=== PATIENT | female | born 1975 | race Caucasian/White ===

== ENCOUNTER 2017-07-17 20:12 | Emergency (ER) | payer MEDICARE ==
[~2017-07-17] VITALS: Ht 167.6 cm; Wt 113.6 kg
[~2017-07-17 20:12] MED LIST: ALTACE 10MG TAB10 MG PO; ALTACE 5MG5 MG PO; ALTACE5 MG PO; AMBIEN 10MG10 MG PO; AMBIEN5 MG PO; AMOXICILLIN 50500 MG PO; ATENOLOL25 MG PO; ATIVAN 0.50.5 MG/TAB PO; BENZTROPINE1 MG PO; CATAPRES 0.1MG0.1 MG PO; CEFTIN500 MG PO; CLEOCIN HCL300 MG PO; COGENTIN 1MG1 MG/TAB PO; COLACE 100100 MG/CAP PO; DARVOCET A500 51 TAB PO; DARVOCET-N-101 UDTAB PO; DEPAKOTE ER 50500 MG PO; DEPAKOTE500 MG PO; DESYREL 100MG100 MG PO; DESYREL 50MG50 MG PO; DESYREL DIVIDO300 MG PO; DIAZEPAM PO; DIVALPROEX DR500 MG PO; ESCITALOPRAM; GLUCOMETER; GLUCOPHAGE500 MG/TAB PO; GLUCOSE TEST ST1 DEV MC; HCTZ; HCTZ 25MG25 MG PO; HUMALOG100 U/ML; HUMALOG100 U/ML SQ; HUMULIN R 10100 U/ML SC; HYDROCODONE/APAP PO; HYTRIN 5MG C5 MG/CAP PO; INSLANT SC; INSULIN HUMA100 U/ML SC; KLONOPIN 1MG1 MG PO; KLONOPIN2 MG PO; KLOR-CON 1010 MEQ PO; LANCETS MC; LANTUS100 U/ML SC; LANTUS100 U/ML SQ; LEXAPRO20 MG PO; LIPITOR 10MG10 MG PO; LOPRESSOR 225 MG/TAB PO; LORTAB 7.5/5001 TAB PO; LUNESTA2 MG; LUNESTA2 MG PO; LUNESTA3 MG PO; LYRICA 150MG C150 MG PO; LYRICA 75MG CAP75 MG PO; MACROBID100 MG PO; METFORMIN1000 MG PO; MINIPRESS 1M1 MG/CAP PO; MINIPRESS 5M5 MG/CAP PO; MINIPRESS2 MG PO; MOTRIN 800800 MG/TAB PO; NAPROXEN 3375 MG/TAB PO; NEURONTIN300 MG/CAP PO; NOVOLOG 100U100 U/M1 SC; NOVOLOG FLEX100 U/ML SC; PERCOCET 325 MG1 TA2 PO; PHENERGAN 25 TA25 MG PO; PRAZOSIN HCL2 MG PO; PROZAC40 MG PO; REMERON 15M15 MG/TA1 PO; ROZEREM 8MG TABL8 MG PO; SEROQUEL 1100 MG/TAB PO; SEROQUEL300 MG; SEROQUEL300 MG PO; SEROQUEL400 MG PO; THORAZINE 550 MG/TAB PO; TRAZODO50 MG PO; ULTRAM 50MG TAB50 MG PO; UNABLE; VIIBRYD20 MG PO; ZITHROMAX Z-PA250 M1 PO; ZITHROMAX Z-PA250 MG PO; ZOFRAN ODT4 MG PO; ZOLOFT 25MG25 MG PO; antibiotic; bp medication
[2017-07-17 20:19] VITALS: TEMP 98.9
[2017-07-17 20:38] LABS: BASO # 0.1 (0.0-0.2); BASO % 1.4 % (0.0-2.0); EOS # 0.1 (0.0-0.7); EOS % 1.8 % (0-4.0); GRAN # 2.1 (1.4-6.5); GRAN % 47.7 % (42.2-75.2); HEMATOCRIT 36.5 % (37.0-47.0); HEMOGLOBIN 12.6 g/dl (12.5-16.0); LYMPH # 1.7 (1.2-3.4); LYMPH % 37.8 % (20.0-51.0); MEAN CELL VOLUME 78 fl (80.0-100.0); MEAN CORPUSCULAR HEMOGLOBIN 27 pg (27.0-31.0); MEAN CORPUSCULAR HGB CONC 35 g/dl (33.0-37.0); MEAN PLATELET VOLUME 9.9 fl (7.4-10.4); MONO # 0.5 (0.1-0.6); MONO % 10.8 % (1.7-9.3); PLATELET COUNT 184 K/mm3 (130-400); RED BLOOD COUNT 4.67 M/mm3 (4.10-5.30); REDCELL DISTRIBUTION WIDTH-CV 14.6 % (11.5-14.5)
[2017-07-17 20:42] LABS: ARTERIAL BLD GAS TCO2 CT 21.7; ARTERIAL BLOOD GAS BASE EXCESS -2.6 (-2-2); ARTERIAL BLOOD GAS HCO3 20.7 meq/L (22-26); ARTERIAL BLOOD GAS PCO2 31.5 mmHg (35-45); ARTERIAL BLOOD GAS PO2 95.9 mmHg (80-100); ARTERIAL BLOOD GAS pH 7.44 (7.35-7.45)
[2017-07-17 20:54] LABS: ALBUMIN 3.9 gm/dL (3.5-5.0); BILIRUBIN,TOTAL 0.9 mg/dL (0.0-1.0); CALCIUM 9.1 mg/dL (8.4-10.2); CREATININE, serum 0.66 mg/dL (0.52-1.25); POTASSIUM 3.6 mmol/L (3.4-5.0); TOTAL PROTEIN 8.1 gm/dL (6.4-8.2)
[2017-07-17] MEDS ORDERED: NEURONTIN400 MG/CAP PO (21:00)
[2017-07-17] MEDS ORDERED: SEROQUEL400 MG PO (21:01)
[2017-07-17] MEDS ORDERED: LANTUS100 U/ML SQ (21:02)
[2017-07-17 21:40] LABS: COLLECTION METHOD CLEAN CATCH
[2017-07-17 21:46] LABS: PH 6 (5-8); SQUAMOUS EPITHELIAL 0-2 /hpf; URINE APPEARANCE Clear; URINE BACTERIA None Seen /hpf; URINE BILIRUBIN Negative (NEGATIVE); URINE BLOOD 2+ (NEGATIVE); URINE COLOR Yellow; URINE GLUCOSE 3+ (NEGATIVE); URINE KETONE Negative (NEGATIVE); URINE LEUKOCYTE ESTERASE Trace (NEGATIVE); URINE NITRATE Negative (NEGATIVE); URINE PROTEIN(semi-quant) Negative (NEGATIVE); URINE RBC 0-2 /hpf; URINE UROBILINOGEN Negative (NEGATIVE)
[2017-07-17 22:09] LABS: INR 0.9 (0.8-3.0); PROTHROMBIN TIME 10.4 SECONDS (9.7-12.8)
[2017-07-17 23:49] VITALS: BP 155/95; PULSE 96
== END 2017-07-18 00:05 | disposition home or self-care (01) ==
LOC: COL.ER 20:12
PROVIDERS: Emergency Medicine
DX: E11.65 Type 2 diabetes mellitus with hyperglycemia (principal); E11.42 Type 2 diabetes mellitus with diabetic polyneuropathy; Z90.89 Acquired absence of other organs; Z90.49 Acquired absence of other specified parts of digestive tract; Z79.4 Long term (current) use of insulin
CPT/HCPCS: J1815; J7030

== ENCOUNTER 2017-08-19 20:57 | Emergency (ER) | payer MEDICARE ==
[~2017-08-19 20:57] MED LIST changes: +NEURONTIN400 MG/CAP PO
[2017-08-19 21:01] VITALS: TEMP 98.6
[2017-08-19 21:34] LABS: BASO % 0.9 % (0.0-2.0); EOS # 0.1 (0.0-0.7); EOS % 2.8 % (0-4.0); GRAN # 2.4 (1.4-6.5); GRAN % 51.3 % (42.2-75.2); HEMATOCRIT 38.2 % (37.0-47.0); HEMOGLOBIN 13.1 g/dl (12.5-16.0); LYMPH # 1.7 (1.2-3.4); LYMPH % 36.9 % (20.0-51.0); MEAN CELL VOLUME 78 fl (80.0-100.0); MEAN CORPUSCULAR HEMOGLOBIN 27 pg (27.0-31.0); MEAN CORPUSCULAR HGB CONC 34 g/dl (33.0-37.0); MEAN PLATELET VOLUME 10.5 fl (7.4-10.4); MONO # 0.4 (0.1-0.6); MONO % 7.7 % (1.7-9.3); PLATELET COUNT 195 K/mm3 (130-400); RED BLOOD COUNT 4.88 M/mm3 (4.10-5.30); REDCELL DISTRIBUTION WIDTH-CV 12.5 % (11.5-14.5)
[2017-08-19 21:42] LABS: ACETONE,SERUM NEGATIVE
[2017-08-19 21:47] LABS: ALANINE AMINOTRANSFERASE 44 U/L (9-52); ALKALINE PHOSPHATASE 170 U/L (50-136); ANION GAP 17 mmol/L (7-16); AST,SGOT 33 U/L (15-37); BILIRUBIN,TOTAL 0.7 mg/dL (0.0-1.0); BLOOD UREA NITROGEN 11 mg/dL (7-17); CALCIUM 9.5 mg/dL (8.4-10.2); CARBON DIOXIDE 18 mmol/L (22-30); CHLORIDE 100 mmol/L (98-107); CREATININE, serum 0.64 mg/dL (0.52-1.25); POTASSIUM 3.6 mmol/L (3.4-5.0); SODIUM 134 mmol/L (137-145); TOTAL PROTEIN 7.9 gm/dL (6.4-8.2)
[2017-08-19 21:50] LABS: ALCOHOL(ethanol),MEDICAL < 10 mg/dL; GLUCOSE 608 mg/dL (74-106)
[2017-08-19 21:53] LABS: C-REACTIVE PROTEIN 1.6 mg/dL (0.0-0.9)
[2017-08-19 22:30] LABS: COLLECTION METHOD CLEAN CATCH
[2017-08-19 22:39] LABS: PH 5 (5-8); SQUAMOUS EPITHELIAL 0-2 /hpf; URINE APPEARANCE Clear; URINE BACTERIA Rare /hpf; URINE BILIRUBIN Negative (NEGATIVE); URINE BLOOD 3+ (NEGATIVE); URINE COLOR Straw; URINE GLUCOSE 3+ (NEGATIVE); URINE KETONE Negative (NEGATIVE); URINE LEUKOCYTE ESTERASE 1+ (NEGATIVE); URINE NITRATE Negative (NEGATIVE); URINE PROTEIN(semi-quant) Negative (NEGATIVE); URINE UROBILINOGEN Negative (NEGATIVE)
[2017-08-19 22:57] LABS: TRICYCLIC ANTIDEPRESS URINE NEGATIVE
[2017-08-20] MEDS ORDERED: ATARAX 10MG10 MG/TAB PO (02:54)
[2017-08-20] MEDS ORDERED: TOPAMAX50 MG PO (02:55)
[2017-08-20] MEDS ORDERED: LAMICTAL 25MG T25 MG PO (02:55)
[2017-08-20] MEDS ORDERED: BUSPAR10 MG PO (02:56)
[2017-08-20] MEDS ORDERED: MINIPRESS2 MG (02:56)
[2017-08-20] MEDS ORDERED: REMERON45 MG PO (02:56)
[2017-08-20] MEDS ORDERED: SEROQUEL300 MG PO (03:04)
[2017-08-20] MEDS ORDERED: PROZAC40 MG PO (03:04)
[2017-08-20] MEDS ORDERED: DESYREL 100MG100 MG PO (03:04)
[2017-08-20] MEDS ORDERED: PERIACTIN 4MG TA4 MG PO (03:05)
[2017-08-20] MEDS ORDERED: NOVOLOG 100U100 U/M1 SQ (03:05)
[2017-08-20] MEDS ORDERED: LANTUS100 U/ML SQ (03:05)
[2017-08-20 12:35] VITALS: BP 151/82; PULSE 85
== END 2017-08-20 12:35 ==
LOC: COL.ER 20:57
PROVIDERS: Family Medicine
DX: F32.9 Major depressive disorder, single episode, unspecified (principal); F43.10 Post-traumatic stress disorder, unspecified; F41.9 Anxiety disorder, unspecified; E11.9 Type 2 diabetes mellitus without complications; Z79.4 Long term (current) use of insulin
CPT/HCPCS: J0696; J1815; J2405; J7030

== ENCOUNTER 2017-11-21 18:15 | Emergency (ER) | payer MEDICARE ==
[~2017-11-21] VITALS: Ht 167.6 cm; Wt 106.8 kg
[~2017-11-21 18:15] MED LIST changes: +ATARAX 10MG10 MG/TAB PO; +BUSPAR10 MG PO; +LAMICTAL 25MG T25 MG PO; +MINIPRESS2 MG; +NOVOLOG 100U100 U/M1 SQ; +PERIACTIN 4MG TA4 MG PO; +REMERON45 MG PO; +TOPAMAX50 MG PO
[2017-11-21 19:35] LABS: BASO % 0.7 % (0.0-2.0); EOS # 0.1 (0.0-0.7); EOS % 2.3 % (0-4.0); GRAN # 3.7 (1.4-6.5); GRAN % 61.1 % (42.2-75.2); HEMATOCRIT 36.8 % (37.0-47.0); HEMOGLOBIN 12.6 g/dl (12.5-16.0); LYMPH # 1.7 (1.2-3.4); LYMPH % 28.5 % (20.0-51.0); MEAN CELL VOLUME 78 fl (80.0-100.0); MEAN CORPUSCULAR HEMOGLOBIN 27 pg (27.0-31.0); MEAN CORPUSCULAR HGB CONC 34 g/dl (33.0-37.0); MEAN PLATELET VOLUME 11.1 fl (7.4-10.4); MONO # 0.4 (0.1-0.6); MONO % 7.2 % (1.7-9.3); PLATELET COUNT 213 K/mm3 (130-400); RED BLOOD COUNT 4.73 M/mm3 (4.10-5.30); REDCELL DISTRIBUTION WIDTH-CV 13.7 % (11.5-14.5)
[2017-11-21] MEDS ORDERED: ZOLOFT 100MG100 MG PO (19:39)
[2017-11-21] MEDS ORDERED: ZOCOR5 MG PO (19:42)
[2017-11-21] MEDS ORDERED: PRINIVIL40 MG PO (19:42)
[2017-11-21 19:43] LABS: ACETONE,SERUM NEGATIVE
[2017-11-21 19:45] LABS: COLLECTION METHOD CLEAN CATCH
[2017-11-21 19:48] LABS: ALANINE AMINOTRANSFERASE 28 U/L (9-52); ALKALINE PHOSPHATASE 125 U/L (50-136); ANION GAP 13 mmol/L (7-16); AST,SGOT 20 U/L (15-37); BILIRUBIN,TOTAL 0.8 mg/dL (0.0-1.0); BLOOD UREA NITROGEN 13 mg/dL (7-17); CARBON DIOXIDE 22 mmol/L (22-30); CHLORIDE 99 mmol/L (98-107); CREATININE, serum 0.49 mg/dL (0.52-1.25); GLUCOSE 321 mg/dL (74-106); POTASSIUM 3.8 mmol/L (3.4-5.0); SODIUM 134 mmol/L (137-145); TOTAL PROTEIN 7.2 gm/dL (6.4-8.2)
[2017-11-21 19:56] LABS: ACETAMINOPHEN < 10 ug/mL (10-30); ALCOHOL(ethanol),MEDICAL < 10 mg/dL; SALICYLATE < 1.0 mg/dL
[2017-11-21 20:01] LABS: MUCOUS Present /lpf; PH 5 (5-8); TRICYCLIC ANTIDEPRESS URINE POSITIVE; URINE APPEARANCE Clear; URINE BACTERIA None Seen /hpf; URINE BILIRUBIN Negative (NEGATIVE); URINE BLOOD 1+ (NEGATIVE); URINE COLOR Yellow; URINE GLUCOSE 3+ (NEGATIVE); URINE KETONE Negative (NEGATIVE); URINE LEUKOCYTE ESTERASE 1+ (NEGATIVE); URINE NITRATE Negative (NEGATIVE); URINE PROTEIN(semi-quant) Negative (NEGATIVE); URINE UROBILINOGEN Negative (NEGATIVE)
[2017-11-21 20:07] LABS: C-REACTIVE PROTEIN 1.2 mg/dL (0.0-0.9)
[2017-11-21] MEDS ORDERED: OMNICEF 300MG300 MG PO (21:37)
[2017-11-22 01:28] VITALS: BP 164/68; PULSE 67; TEMP 98.1
== END 2017-11-22 01:30 ==
LOC: COL.ER 18:15
PROVIDERS: Emergency Medicine
DX: E11.65 Type 2 diabetes mellitus with hyperglycemia (principal); N39.0 Urinary tract infection, site not specified; F32.9 Major depressive disorder, single episode, unspecified; R45.851 Suicidal ideations; Z79.4 Long term (current) use of insulin
CPT/HCPCS: J0696; J1815; J7030

== ENCOUNTER → 2017-12-05 | Outpatient (CLI) | payer MEDICARE ==
[~2017-12-05] MED LIST changes: +OMNICEF 300MG300 MG PO; +PRINIVIL40 MG PO; +ZOCOR5 MG PO; +ZOLOFT 100MG100 MG PO
== END ==
LOC: COL.RAD 15:34
DX: M17.12 Unilateral primary osteoarthritis, left knee (principal); Z98.890 Other specified postprocedural states

== ENCOUNTER → 2017-12-13 | Outpatient (CLI) | payer MEDICARE ==
[2017-12-13 16:20] LABS: BASO # 0.1 (0.0-0.2); BASO % 0.8 % (0.0-2.0); EOS # 0.2 (0.0-0.7); GRAN # 4.9 (1.4-6.5); HEMATOCRIT 38.4 % (37.0-47.0); HEMOGLOBIN 12.9 g/dl (12.5-16.0); LYMPH # 1.9 (1.2-3.4); LYMPH % 25.9 % (20.0-51.0); MEAN CELL VOLUME 80 fl (80.0-100.0); MEAN CORPUSCULAR HEMOGLOBIN 27 pg (27.0-31.0); MEAN CORPUSCULAR HGB CONC 34 g/dl (33.0-37.0); MEAN PLATELET VOLUME 11.1 fl (7.4-10.4); MONO # 0.5 (0.1-0.6); PLATELET COUNT 200 K/mm3 (130-400); REDCELL DISTRIBUTION WIDTH-CV 13.4 % (11.5-14.5)
[2017-12-13 16:29] LABS: ALBUMIN 4.1 gm/dL (3.5-5.0); BILIRUBIN,TOTAL 0.7 mg/dL (0.0-1.0); CALCIUM 9.5 mg/dL (8.4-10.2); CREATININE, serum 0.49 mg/dL (0.52-1.25); POTASSIUM 3.4 mmol/L (3.4-5.0); TOTAL PROTEIN 7.7 gm/dL (6.4-8.2)
== END ==
LOC: COL.LAB 11:47
PROVIDERS: Family Medicine
DX: R11.10 Vomiting, unspecified (principal)

== ENCOUNTER 2018-02-26 18:49 | Inpatient (IN) | payer MEDICARE ==
[~2018-02-26] VITALS: Ht 167.6 cm; Wt 102.8 kg
[2018-02-26] VITALS (81 sets, daily range): BP systolic 131–165; BP diastolic 85–94; PULSE 92–93; TEMP 98.1; O2SAT 96–100
[2018-02-26 19:10] LABS: BASO % 0.5 % (0.0-2.0); EOS # 0.1 (0.0-0.7); EOS % 0.7 % (0-4.0); GRAN # 5.6 (1.4-6.5); HEMOGLOBIN 13.8 g/dl (12.5-16.0); LYMPH # 2.2 (1.2-3.4); LYMPH % 25.8 % (20.0-51.0); MEAN CELL VOLUME 80 fl (80.0-100.0); MEAN CORPUSCULAR HEMOGLOBIN 27 pg (27.0-31.0); MEAN CORPUSCULAR HGB CONC 35 g/dl (33.0-37.0); MEAN PLATELET VOLUME 10.8 fl (7.4-10.4); MONO # 0.6 (0.1-0.6); MONO % 6.8 % (1.7-9.3); PLATELET COUNT 211 K/mm3 (130-400); RED BLOOD COUNT 5.03 M/mm3 (4.10-5.30); REDCELL DISTRIBUTION WIDTH-CV 12.8 % (11.5-14.5)
[2018-02-26 19:18] LABS: PROTHROMBIN TIME 11.2 SECONDS (9.7-12.8)
[2018-02-26 19:24] LABS: ALANINE AMINOTRANSFERASE 26 U/L (9-52); ALBUMIN 4.2 gm/dL (3.5-5.0); ALKALINE PHOSPHATASE 145 U/L (50-136); ANION GAP 13 mmol/L (7-16); AST,SGOT 21 U/L (15-37); BILIRUBIN,TOTAL 1.1 mg/dL (0.0-1.0); BLOOD UREA NITROGEN 4 mg/dL (7-17); CALCIUM 9.6 mg/dL (8.4-10.2); CARBON DIOXIDE 24 mmol/L (22-30); CHLORIDE 100 mmol/L (98-107); CREATININE, serum 0.48 mg/dL (0.52-1.25); GLUCOSE 381 mg/dL (74-106); POTASSIUM 3.5 mmol/L (3.4-5.0); SODIUM 136 mmol/L (137-145); TOTAL PROTEIN 7.4 gm/dL (6.4-8.2)
[2018-02-26 19:31] LABS: ALCOHOL(ethanol),MEDICAL < 10 mg/dL; SALICYLATE < 1.0 mg/dL
[2018-02-26 19:34] LABS: ACETAMINOPHEN 272 ug/mL (10-30)
[2018-02-26 20:43] LABS: COLLECTION METHOD CLEAN CATCH
[2018-02-26 20:49] LABS: PH 5 (5-8); URINE APPEARANCE Hazy; URINE BACTERIA Rare /hpf; URINE BILIRUBIN Negative (NEGATIVE); URINE BLOOD 2+ (NEGATIVE); URINE COLOR Yellow; URINE GLUCOSE 3+ (NEGATIVE); URINE KETONE 1+ (NEGATIVE); URINE LEUKOCYTE ESTERASE Trace (NEGATIVE); URINE NITRATE Negative (NEGATIVE); URINE PROTEIN(semi-quant) 1+ (NEGATIVE); URINE RBC 0-2 /hpf; URINE UROBILINOGEN Negative (NEGATIVE)
[2018-02-26 21:02] LABS: TRICYCLIC ANTIDEPRESS URINE POSITIVE
[2018-02-26] MEDS ORDERED: PRINIVIL40 MG PO (22:54)
[2018-02-26] MEDS ORDERED: SEROQUEL50 MG PO (22:56)
[2018-02-26] MEDS ORDERED: CYMBALTA 60MG60 MG PO (22:58)
[2018-02-27] VITALS (839 sets, daily range): BP systolic 117–176; BP diastolic 71–105; PULSE 71–103; TEMP 97.7–99.1; O2SAT 84–100
[2018-02-27 01:23] LABS: ALBUMIN 3.9 gm/dL (3.5-5.0); BILIRUBIN,TOTAL 1.1 mg/dL (0.0-1.0); CALCIUM 8.9 mg/dL (8.4-10.2); CREATININE, serum 0.47 mg/dL (0.52-1.25); MAGNESIUM 1.7 mg/dL (1.6-2.3); PHOSPHOROUS 1.5 mg/dL (2.5-4.5); TOTAL PROTEIN 7.1 gm/dL (6.4-8.2)
[2018-02-27 01:55] LABS: ARTERIAL BLD GAS O2 SATURATION 97.2 % (92-100); ARTERIAL BLD GAS TCO2 CT 25.4; ARTERIAL BLOOD GAS BASE EXCESS 2.4 (-2-2); ARTERIAL BLOOD GAS HCO3 24.5 meq/L (22-26); ARTERIAL BLOOD GAS PCO2 30.9 mmHg (35-45); ARTERIAL BLOOD GAS PO2 93.2 mmHg (80-100); ARTERIAL BLOOD GAS pH 7.52 (7.35-7.45)
[2018-02-27 06:34] LABS: ALBUMIN 3.7 gm/dL (3.5-5.0); BASO % 0.3 % (0.0-2.0); BILIRUBIN,TOTAL 0.8 mg/dL (0.0-1.0); CALCIUM 8.9 mg/dL (8.4-10.2); CREATININE, serum 0.46 mg/dL (0.52-1.25); GRAN # 8.5 (1.4-6.5); GRAN % 74.7 % (42.2-75.2); HEMATOCRIT 40.3 % (37.0-47.0); HEMOGLOBIN 14.1 g/dl (12.5-16.0); LYMPH % 17.2 % (20.0-51.0); MAGNESIUM 1.7 mg/dL (1.6-2.3); MEAN CELL VOLUME 79 fl (80.0-100.0); MEAN CORPUSCULAR HEMOGLOBIN 28 pg (27.0-31.0); MEAN CORPUSCULAR HGB CONC 35 g/dl (33.0-37.0); MEAN PLATELET VOLUME 10.7 fl (7.4-10.4); MONO # 0.8 (0.1-0.6); MONO % 7.4 % (1.7-9.3); PHOSPHOROUS 2.1 mg/dL (2.5-4.5); PLATELET COUNT 246 K/mm3 (130-400); RED BLOOD COUNT 5.11 M/mm3 (4.10-5.30); TOTAL PROTEIN 6.9 gm/dL (6.4-8.2)
[2018-02-27 06:37] LABS: POTASSIUM 2.9 mmol/L (3.4-5.0)
[2018-02-27 06:48] LABS: INR 1.2 (0.8-3.0); PROTHROMBIN TIME 13.2 SECONDS (9.7-12.8)
[2018-02-27 09:21] LABS: ARTERIAL BLD GAS O2 SATURATION 97.5 % (92-100); ARTERIAL BLD GAS TCO2 CT 24.2; ARTERIAL BLOOD GAS BASE EXCESS 1.1 (-2-2); ARTERIAL BLOOD GAS HCO3 23.3 meq/L (22-26); ARTERIAL BLOOD GAS PCO2 30.4 mmHg (35-45); ARTERIAL BLOOD GAS PO2 97.4 mmHg (80-100)
[2018-02-27 14:02] LABS: ALBUMIN 3.5 gm/dL (3.5-5.0); CALCIUM 8.4 mg/dL (8.4-10.2); CREATININE, serum 0.38 mg/dL (0.52-1.25); MAGNESIUM 2.6 mg/dL (1.6-2.3); POTASSIUM 3.4 mmol/L (3.4-5.0); TOTAL PROTEIN 6.4 gm/dL (6.4-8.2)
[2018-02-27 16:18] LABS: BASO % 0.4 % (0.0-2.0); EOS % 0.3 % (0-4.0); GRAN # 7.6 (1.4-6.5); HEMATOCRIT 37.2 % (37.0-47.0); HEMOGLOBIN 12.7 g/dl (12.5-16.0); LYMPH # 2.2 (1.2-3.4); LYMPH % 20.8 % (20.0-51.0); MEAN CELL VOLUME 80 fl (80.0-100.0); MEAN CORPUSCULAR HEMOGLOBIN 27 pg (27.0-31.0); MEAN CORPUSCULAR HGB CONC 34 g/dl (33.0-37.0); MEAN PLATELET VOLUME 10.4 fl (7.4-10.4); MONO # 0.7 (0.1-0.6); MONO % 6.2 % (1.7-9.3); PLATELET COUNT 222 K/mm3 (130-400); RED BLOOD COUNT 4.64 M/mm3 (4.10-5.30); REDCELL DISTRIBUTION WIDTH-CV 13.3 % (11.5-14.5)
[2018-02-27 16:25] LABS: INR 1.2 (0.8-3.0); PROTHROMBIN TIME 13.4 SECONDS (9.7-12.8)
[2018-02-27 16:31] LABS: ALANINE AMINOTRANSFERASE 34 U/L (9-52); ALBUMIN 3.4 gm/dL (3.5-5.0); ALKALINE PHOSPHATASE 107 U/L (50-136); ANION GAP 5 mmol/L (7-16); AST,SGOT 36 U/L (15-37); BLOOD UREA NITROGEN 5 mg/dL (7-17); CALCIUM 8.4 mg/dL (8.4-10.2); CARBON DIOXIDE 25 mmol/L (22-30); CHLORIDE 106 mmol/L (98-107); CREATININE, serum 0.37 mg/dL (0.52-1.25); GLUCOSE 203 mg/dL (74-106); POTASSIUM 3.7 mmol/L (3.4-5.0); SODIUM 136 mmol/L (137-145); TOTAL PROTEIN 6.3 gm/dL (6.4-8.2)
[2018-02-27 16:39] LABS: ACETAMINOPHEN < 10 ug/mL (10-30)
[2018-02-28] VITALS (325 sets, daily range): BP systolic 130–164; BP diastolic 79–109; PULSE 66–79; TEMP 98–98.8; O2SAT 87–100
[2018-02-28 05:54] LABS: BASO % 0.5 % (0.0-2.0); EOS # 0.2 (0.0-0.7); GRAN # 4.6 (1.4-6.5); GRAN % 62.6 % (42.2-75.2); HEMOGLOBIN 12.1 g/dl (12.5-16.0); LYMPH # 2.1 (1.2-3.4); LYMPH % 28.8 % (20.0-51.0); MEAN CELL VOLUME 82 fl (80.0-100.0); MEAN CORPUSCULAR HEMOGLOBIN 28 pg (27.0-31.0); MEAN CORPUSCULAR HGB CONC 34 g/dl (33.0-37.0); MEAN PLATELET VOLUME 10.5 fl (7.4-10.4); MONO # 0.4 (0.1-0.6); MONO % 5.7 % (1.7-9.3); PLATELET COUNT 190 K/mm3 (130-400); RED BLOOD COUNT 4.35 M/mm3 (4.10-5.30); REDCELL DISTRIBUTION WIDTH-CV 13.3 % (11.5-14.5)
[2018-02-28 05:55] LABS: HEMATOCRIT 35.7 % (37.0-47.0)
[2018-02-28 06:23] LABS: ALBUMIN 3.3 gm/dL (3.5-5.0); CALCIUM 8.8 mg/dL (8.4-10.2); CREATININE, serum 0.41 mg/dL (0.52-1.25); MAGNESIUM 1.7 mg/dL (1.6-2.3); PHOSPHOROUS 3.2 mg/dL (2.5-4.5); POTASSIUM 3.9 mmol/L (3.4-5.0); TOTAL PROTEIN 6.1 gm/dL (6.4-8.2)
[2018-02-28] MEDS ORDERED: MONISTAT 7 VAG45 GM VG (11:01)
[2018-02-28] MEDS ORDERED: DESENEX21 TP (11:03)
== END 2018-02-28 14:18 | DRG 918 ==
LOC: COL.ER 18:49 → ICU 21:40
PROVIDERS: Emergency Medicine; Internal Medicine Pulmonary Disease; Nurse Practitioner Family; Physician Assistant
PROC: 02HV33Z Insertion of Infusion Device into Superior Vena Cava, Percutaneous Approach (ICD-10-PCS; principal; 2018-02-27)
DX: T39.1X2A Poisoning by 4-Aminophenol derivatives, intentional self-harm, initial encounter (principal); T42.4X2A Poisoning by benzodiazepines, intentional self-harm, initial encounter; T44.3X2A Poisoning by other parasympatholytics [anticholinergics and antimuscarinics] and spasmolytics, intentional self-harm, initial encounter; I10 Essential (primary) hypertension; F43.10 Post-traumatic stress disorder, unspecified; F32.9 Major depressive disorder, single episode, unspecified; E11.65 Type 2 diabetes mellitus with hyperglycemia; B37.3 Candidiasis of vulva and vagina; E87.6 Hypokalemia; F41.0 Panic disorder [episodic paroxysmal anxiety]; F60.3 Borderline personality disorder; Z79.4 Long term (current) use of insulin; Z91.14 Patient's other noncompliance with medication regimen; E83.39 Other disorders of phosphorus metabolism
CPT/HCPCS: 99222-AI; 99239; C1751; J0132; J0360; J1644; J1815; J2405; J2765; J3475; J3480; J7030; J7040; J7060; J7070

== ENCOUNTER 2018-04-01 13:51 | Emergency (ER) | payer MEDICARE ==
[~2018-04-01] VITALS: Ht 167.6 cm; Wt 100.9 kg
[~2018-04-01 13:51] MED LIST changes: +CYMBALTA 60MG60 MG PO; +DESENEX21 TP; +MONISTAT 7 VAG45 GM VG; +SEROQUEL50 MG PO
[2018-04-01 13:59] VITALS: BP 135/94; TEMP 98.7
[2018-04-01 15:16] VITALS: PULSE 80
== END 2018-04-01 15:18 | disposition home or self-care (01) ==
LOC: COL.ER 13:51
DX: M25.512 Pain in left shoulder (principal); E11.9 Type 2 diabetes mellitus without complications; I50.9 Heart failure, unspecified; Z87.442 Personal history of urinary calculi; Z90.89 Acquired absence of other organs; Z79.4 Long term (current) use of insulin; X50.0XXA Overexertion from strenuous movement or load, initial encounter